=== PATIENT | male | born 1990 | race Caucasian/White ===

== ENCOUNTER 2016-08-28 13:23 | Emergency (ER) | payer BC ==
--- NOTE | 2016-08-28 14:17 | ER Document Report ---
ED Medical Screen (RME) - General Chief Complaint: Chest Pain Stated Complaint: CHEST PAIN Time Seen by Provider: 08/28/16 14:06 Mode of Arrival: Ambulatory Information source: Patient Notes: Patient is a 26 year old male with a history of ASD and hypertension presents to the ED with complaints of intermittent stabbing chest pain with onset 0830 this morning while driving. Patient states the pain is more on the left than the right. Patient states he has had this pain intermittently his entire life but states it is worse today than normal. Patient states he has some pain in his shoulder but it is not painful to take a breath. Patient states stress may have brought this on. TRAVEL OUTSIDE OF THE [place] IN LAST 30 DAYS: No - HPI Onset: This morning Quality of pain: Stabbing Associated Symptoms: Other - see above - Related Data Allergies/Adverse Reactions: No Known Allergies Allergy (Verified 08/28/16 13:43) Past Medical History - General Information source: Patient - Social History Cigarette use (# per day): Yes Frequency of alcohol use: None Drug Abuse: None - Past Medical History Cardiac Medical History: Reports: Hx Hypertension, Other - ASD Renal/ Medical History: Denies: Hx Peritoneal Dialysis Surgical Hx: Negative Review of Systems - Review of Systems Constitutional: No symptoms reported EENT: No symptoms reported Cardiovascular: See HPI, Chest pain Respiratory: No symptoms reported Gastrointestinal: No symptoms reported Genitourinary: No symptoms reported Male Genitourinary: No symptoms reported Musculoskeletal: No symptoms reported Skin: No symptoms reported Hematologic/Lymphatic: No symptoms reported Neurological/Psychological: No symptoms reported Physical Exam - Vital signs Vitals: Temp Pulse Resp BP Pulse Ox 98.6 F 69 20 169/98 H 100 08/28/16 13:43 08/28/16 13:43 08/28/16 13:43 08/28/16 13:43 08/28/16 13:43 - Respiratory Respiratory status: No respiratory distress Breath sounds: Other - coarse breath sounds. No: Normal - Cardiovascular Rhythm: Regular Heart sounds: Normal auscultation Murmur: Yes - systolic noted Course - Vital Signs Vital signs: Temp Pulse Resp BP Pulse Ox 98.6 F 69 20 169/98 H 100 08/28/16 13:43 08/28/16 13:43 08/28/16 13:43 08/28/16 13:43 08/28/16 13:43 Scribe Documentation - Scribe Written by August:: august Hill, 08/28/2016, 1417 acting as scribe for :: Caitie
[2016-08-28 15:08] LABS: ABSOLUTE BASOPHILS # (AUTO) 0.1 10^3/uL (0.0-0.2); ABSOLUTE EOSINOPHILS # (AUTO) 0.2 10^3/uL (0.0-0.6); ABSOLUTE LYMPHOCYTES (AUTO) 2.5 10^3/uL (0.5-4.7); ABSOLUTE NEUT (AUTO) 6.4 10^3/uL (1.7-8.2); BASOPHILS % (AUTO) 0.8 % (0-2); EOSINOPHILS % (AUTO) 1.7 % (0-6); HEMATOCRIT 45.6 % (37.9-51.0); HEMOGLOBIN 15.7 g/dL (13.5-17.0); HGB HCT DIFFERENCE 1.5; LYMPHOCYTES % (AUTO) 24.2 % (13-45); MEAN CORPUSCULAR HEMOGLOBIN 31.8 pg (27.0-33.4); MEAN CORPUSCULAR HGB CONC 34.3 g/dL (32.0-36.0); MEAN CORPUSCULAR VOLUME 93 fl (80-97); MONOCYTES % (AUTO) 9.8 % (3-13); RED BLOOD COUNT 4.92 10^6/uL (4.35-5.55); RED CELL DISTRIBUTION WIDTH 12.8 % (11.5-14.0); SEGMENTED NEUTROPHILS % (AUTO) 63.5 % (42-78); WHITE BLOOD COUNT 10.1 10^3/uL (4.0-10.5)
[2016-08-28 15:27] LABS: ALANINE AMINOTRANSFERASE 39 U/L (21-72); ALKALINE PHOSPHATASE 60 U/L (38-126); ANION GAP 13 (5-19); ASPARTATE AMINO TRANSFERASE 35 U/L (17-59); BILIRUBIN,DIRECT 0.3 mg/dL (0.0-0.4); BILIRUBIN,TOTAL 0.6 mg/dL (0.2-1.3); BLOOD UREA NITROGEN 10 mg/dL (7-20); CALCIUM 10.2 mg/dL (8.4-10.2); CARBON DIOXIDE 25 mmol/L (22-30); CHLORIDE 103 mmol/L (98-107); CREATINE KINASE 159 U/L (55-170); CREATININE RESULT 1.18 mg/dL (0.52-1.25); GLUCOSE 90 mg/dL (75-110); POTASSIUM 4.1 mmol/L (3.6-5.0); SODIUM 140.6 mmol/L (137-145); TOTAL PROTEIN 7.9 g/dL (6.3-8.2)
--- NOTE | 2016-08-28 15:57 | RADIOLOGY REPORT (SQ) ---
EXAM DESCRIPTION: CHEST SINGLE VIEW COMPLETED DATE/TIME: 08/28/2016 3:42 pm REASON FOR STUDY: CP COMPARISON: None. EXAM PARAMETERS: NUMBER OF VIEWS: One view. TECHNIQUE: Single frontal radiographic view of the chest acquired. RADIATION DOSE: NA LIMITATIONS: None. FINDINGS: LUNGS AND PLEURA: No opacities, masses or pneumothorax. No pleural effusion. MEDIASTINUM AND HILAR STRUCTURES: No masses. Contour normal. HEART AND VASCULAR STRUCTURES: Heart normal in size. Normal vasculature. BONES: No acute findings. HARDWARE: None in the chest. OTHER: No other significant finding. IMPRESSION: NO ACUTE RADIOGRAPHIC FINDING IN THE CHEST. TECHNICAL DOCUMENTATION: JOB ID: [id number]
--- NOTE | 2016-08-28 16:51 | ER Document Report ---
ED Cardiac - General Mode of Arrival: Ambulatory Information source: Patient TRAVEL OUTSIDE OF THE [place] IN LAST 30 DAYS: No - HPI Patient complains to provider of: Chest pain Quality of pain: Other - "searing" <KENDALL LIZARRAGA - Last Filed: 08/28/16 17:16> <MEGHAN ACOSTA - Last Filed: 08/29/16 01:10> - General Chief Complaint: Chest Pain Stated Complaint: CHEST PAIN Time Seen by Provider: 08/28/16 14:06 Notes: Patient is a 26-year-old male who presents to the emergency department today with complaints of chest pain beginning this morning at 0800 and lasting until 1100. Patient states the pain occurred approximately every 15 minutes and he describes it as a "searing pain". Patient states he has an ASD. Patient states he has had echocardiograms in the past. Patient denies any changes in his pain with breathing. Patient states it does not hurt to breathe. Patient states that he ate a tamale for breakfast prior to his pain beginning. (KENDALL LIZARRAGA) - Related Data Allergies/Adverse Reactions: No Known Allergies Allergy (Verified 08/28/16 13:43) Past Medical History - General Information source: Patient - Social History Smoking Status: Current Every Day Smoker Cigarette use (# per day): Yes Frequency of alcohol use: None Drug Abuse: None Lives with: Family Family History: Reviewed & Not Pertinent Patient has suicidal ideation: No Patient has homicidal ideation: No - Past Medical History Cardiac Medical History: Reports: Hx Hypertension, Other - ASD Surgical Hx: Negative <KENDALL LIZARRAGA - Last Filed: 08/28/16 17:16> Review of Systems - Review of Systems Constitutional: No symptoms reported EENT: No symptoms reported Cardiovascular: See HPI, Chest pain Respiratory: denies: Hurts to breathe, Short of breath Gastrointestinal: No symptoms reported Genitourinary: No symptoms reported Male Genitourinary: No symptoms reported Musculoskeletal: No symptoms reported Skin: No symptoms reported Hematologic/Lymphatic: No symptoms reported Neurological/Psychological: No symptoms reported -: Yes All other systems reviewed and negative <KENDALL LIZARRAGA - Last Filed: 08/28/16 17:16> Physical Exam <KENDALL LIZARRAGA - Last Filed: 08/28/16 17:16> <MEGHAN ACOSTA - Last Filed: 08/29/16 01:10> - Vital signs Vitals: Temp Pulse Resp BP Pulse Ox 98.6 F 69 20 169/98 H 100 08/28/16 13:43 08/28/16 13:43 08/28/16 13:43 08/28/16 13:43 08/28/16 13:43 - Notes Notes: Physical Exam: General: Alert, appears well. HEENT: Normocephalic. Atraumatic. PERRL. Extraocular movements intact. Oropharynx clear. Neck: Supple. Non-tender. Respiratory: No respiratory distress. Clear and equal breath sounds bilaterally. Cardiovascular: Regular rate and rhythm. Abdominal: Normal Inspection. Non-tender. No distension. Normal Bowel Sounds. Back: Non-tender. No deformity or step off. Extremities: Moves all four extremities. Upper extremities: Normal inspection. Normal ROM. Lower extremities: Normal inspection. No edema. Normal ROM. Neurological: Normal cognition. AAOx4. Normal speech. Psychological: Normal affect. Normal Mood. Skin: Warm. Dry. Normal color. (KENDALL LIZARRAGA) Course - Laboratory Result Diagrams: 08/28/16 14:45 08/28/16 14:45 <KENDALL LIZARRAGA - Last Filed: 08/28/16 17:16> - Laboratory Result Diagrams: 08/28/16 14:45 08/28/16 14:45 - Diagnostic Test Radiology reviewed: Reports reviewed - EKG Interpretation by Ct EKG shows normal: Sinus rhythm Rate: Normal Rhythm: NSR <MEGHAN ACOSTA - Last Filed: 08/29/16 01:10> - Re-evaluation Re-evalutation: Patient with no continued chest pain. No acute findings on blood work or imaging. Patient feels well at this time would like to go home. Of note, the patient ate a leftover tamale for breakfast that was spicy. Patient is to follow-up with a primary care doctor. Return if any worsening or concerning symptoms. Stable for discharge. (MEGHAN ACOSTA) - Vital Signs Vital signs: Temp Pulse Resp BP Pulse Ox 98.3 F 69 23 H 147/85 H 93 08/28/16 17:01 08/28/16 13:43 08/28/16 17:01 08/28/16 17:01 08/28/16 17:01 Discharge <KENDALL LIZARRAGA - Last Filed: 08/28/16 17:16> <MEGHAN ACOSTA - Last Filed: 08/29/16 01:10> - Discharge Clinical Impression: Atypical chest pain Condition: Stable Disposition: HOME, SELF-CARE Instructions: Chest Pain of Unclear Cause ([facility]), Family Physicians / Practices Additional Instructions: Please follow-up with a primary when you are able to do so. Forms: Return to Work Scribe Attestation: 08/29/16 01:10 I personally performed the services described in the documentation, reviewed and edited the documentation which was dictated to the scribe in my presence, and it accurately records my words and actions. (MEGHAN ACOSTA) Scribe Documentation - Scribe Written by Scribe:: Emi Quiñones, 08/28/2016 1719 acting as scribe for :: Durgai <KENDALL LIZARRAGA - Last Filed: 08/28/16 17:16>
[2016-08-28 17:03] VITALS: BP 147/85
--- NOTE | 2016-08-28 22:47 | EKG REPORT ---
SEVERITY:- ABNORMAL ECG - SINUS RHYTHM NONSPECIFIC INTRAVENTRICULAR CONDUCTION DELAY : Confirmed by: Elliot Vazquez 28-Aug-2016 22:46:24
== END 2016-08-28 17:03 | disposition home or self-care (01) ==
LOC: ER 13:23
DX: R07.89 Other chest pain (principal); F17.210 Nicotine dependence, cigarettes, uncomplicated; I10 Essential (primary) hypertension
CPT/HCPCS: 36415; 71010; 80053; 82550; 82553; 84484; 85025; 93005; 93010; 99285